=== PATIENT | male | born 1970 | race Caucasian/White ===

== ENCOUNTER 2020-04-08 05:46 | Day surgery (SDC) | payer OTHER ==
[2020-04-04 10:49] LABS: BASOPHILS # (AUTO) 0.1 X10'3 (0-0.2); BASOPHILS % (AUTO) 0.7 % (0-1); EOSINOPHILS # (AUTO) 0.1 X10'3 (0-0.9); EOSINOPHILS % (AUTO) 0.8 % (0-6); LYMPHOCYTES # (AUTO) 1.4 X10'3 (1.1-4.8); LYMPHOCYTES % (AUTO) 16.5 % (21-51); MEAN CORPUSCULAR HGB CONC 33.7 g/dL (33.0-36.5); MEAN PLATELET VOLUME 7.8 FL (7.4-10.4); MONOCYTES # (AUTO) 0.8 X10'3 (0-0.9); MONOCYTES % (AUTO) 9.7 % (2-12); NEUTROPHILS # (AUTO) 6.1 X10'3 (1.8-7.7); NEUTROPHILS % (AUTO) 72.3 % (42-75); PRE OP HEMATOCRIT 48.6 % (42.0-52.0); PRE OP HEMOGLOBIN 16.4 g/dL (14.0-17.9); PRE OP PLATELET COUNT 196 X10'3 (140-440); RED BLOOD COUNT 4.97 X10'6 (4.70-6.10); RED CELL DISTRIBUTION WIDTH 13.9 % (11.5-14.5)
[2020-04-04 11:05] LABS: PRE OP PROTIME 10.4 SECONDS (9.0-12.0)
[2020-04-04 11:07] LABS: ALBUMIN 4.2 G/DL (3.4-5.0); ALKALINE PHOSPHATASE 41 IU/L (46-116); BLOOD UREA NITROGEN 12 MG/DL (7-18); BUN/CREATININE RATIO 11.9 (5.4-32.0); CALCIUM 9.6 MG/DL (8.5-10.1); CHLORIDE 103 MMOL/L (99-107); CREATININE 1.01 MG/DL (0.60-1.10); PRE OP ANION GAP 10 (8-16); PRE OP AST 106 U/L (10-37); PRE OP BILIRUB, TOTAL 0.7 MG/DL (0.0-1.0); PRE OP GLUCOSE 91 MG/DL (70-104); PRE OP POTASSIUM 3.9 MMOL/L (3.4-5.1); PRE OP SODIUM 141 MMOL/L (135-145); TOTAL CARBON DIOXIDE 28.4 MMOL/L (24-32); TOTAL PROTEIN 8.3 G/DL (6.4-8.2); eGFR 79 ML/MIN
[2020-04-04 11:08] LABS: PRE OP ALT 138 U/L (30-65)
[~2020-04-08] VITALS: Ht 182.9 cm; Wt 97.8 kg
[2020-04-08] VITALS (10 sets, daily range): BP systolic 125–151; BP diastolic 70–100
[~2020-04-08 05:46] MED LIST: OMEP10CA5 PO; TEST200V10 IM; VALA500T41 PO; famotidine 20mg tablet PO ONE; ringers solution, lacted 1,000 ML IV SCH
[2020-04-08] MEDS: oxymetazoline 15 ML nasal spray NS PRN ×3 (06:20→10:58)
[2020-04-08] MEDS ORDERED: mupirocin 2% ointment 22GM ONE (08:08)
[2020-04-08] MEDS ORDERED: cocaine 4% topical solution 4ml bottle ONE (08:08)
[2020-04-08] MEDS ORDERED: cefTAZidime 1gm inj ONE (08:08)
[2020-04-08] MEDS ORDERED: methylPREDNISolone acetate 80mg/ml inj**IM only ONE (08:08)
[2020-04-08] MEDS ORDERED: gelatin sponge, absorbable (Gelfoam 100) sponge TP ONE (08:09)
[2020-04-08] MEDS ORDERED: LIDOcaine 1% w/epiNEPHrine 1:200,000 30ml vial ONE (08:09)
[2020-04-08] MEDS ORDERED: LIDOcaine 1% W/epiNEPHrine 1:200,000 10ml vial ONE (08:29)
[2020-04-08] MEDS ORDERED: fentaNYL/PF 50MCG/1 ML 2ML syringe ONE ×2 (09:15→09:32)
[2020-04-08] MEDS ORDERED: midazolam 2 mg/2 ml injection ONE (09:15)
[2020-04-08] MEDS ORDERED: LIDOcaine 2% (20mg/ml) 5ml vial ONE (09:16)
[2020-04-08] MEDS ORDERED: propofol inj 20 ML IV ONE (09:16)
[2020-04-08] MEDS ORDERED: dexamethasone sod phosphate 4mg/ml inj. ONE (09:17)
[2020-04-08] MEDS ORDERED: morphine 4 MG/ML inj SYRINge IV PRN (10:15)
[2020-04-08] MEDS ORDERED: ondansetron/PF 4mg/2ml inj IV PRN (10:15)
[2020-04-08] MEDS ORDERED: morphine 2 MG/ML inj. syringe IV PRN (10:15)
[2020-04-08] MEDS ORDERED: hydrALAZINE 20mg/ml inj. IV PRN (10:15)
[2020-04-08] MEDS ORDERED: ringers solution, lacted 1,000 ML IV SCH (10:15)
[2020-04-08] MEDS ORDERED: meperidine/PF 25mg/ml syringe IV PRN ×3 (10:15)
[2020-04-08] MEDS ORDERED: labetalol 5mg/ml 20ml inj. IV PRN (10:15)
--- NOTE | 2020-04-08 10:43 | NUR ---
Received from OR via [facility], accompanied by Anesthesiologist DR KENT and report given by Anesthesiolgist. PT SLEEPING BUT AROUSABLE. COTTONOIDS IN PLACE BILAT NARES.
[2020-04-08] MEDS ORDERED: neostigmine methylsulfate 1 MG/ML 10ml vial ONE (10:45)
[2020-04-08] MEDS ORDERED: ondansetron/PF 4mg/2ml inj ONE (10:45)
[2020-04-08] MEDS ORDERED: glycopyrrolate 0.2mg/ml inj ONE (10:45)
--- NOTE | 2020-04-08 11:13 | NUR ---
COTTONOIDS DC'D PER MD ORDERS, NO BLEEDING. MASSIMO NASAL DRSG APPLIED. PT TOLERATED WELL.
--- NOTE | 2020-04-08 11:35 | NUR ---
SALINE NASAL SPRAY AND NASAL OINTMENT ADMINISTERED PER MD ORDERS.
[2020-04-08] MEDS ORDERED: salt irrigation nasal spray 45 ML SPRAY NS PRN (12:18)
--- NOTE | 2020-04-08 12:43 | NUR ---
PT WAS DISCHARGED TO HOME SAFELY VIA W/C TO PERSONAL VEHICLE BEING DRIVEN BY PT . PT STATES UNDERSTANDING REGARDING ALL DC INSTRUCTIONS. NASAL DRSG IN PLACE, SCANT DRAINAGE FROM NARES. AFIRIN USED ORDERED AND NEW GAUZE PLACED. PT STATES HIS NAUSEA HAS RESOLVED AND STATES READINESS FOR DC TO HOME.
== END 2020-04-08 12:43 | disposition home or self-care (01) ==
LOC: PAS 05:46
PROVIDERS: ATTEND Otolaryngology
DX: J34.2 Deviated nasal septum (principal); J34.3 Hypertrophy of nasal turbinates; J32.8 Other chronic sinusitis; G47.33 Obstructive sleep apnea (adult) (pediatric); K21.9 Gastro-esophageal reflux disease without esophagitis; Z79.01 Long term (current) use of anticoagulants; Z79.899 Other long term (current) drug therapy; Z20.822 Contact with and (suspected) exposure to COVID-19; Z98.890 Other specified postprocedural states; Z72.89 Other problems related to lifestyle
CPT/HCPCS: 30140; 30520; 36415; 80053; 82948; 85025; 85576; 85610; 85730; 87426; 87635; 93005; A6402; C9250; J0713; J1040; J1100; J2001; J2175; J2250; J2405; J2704; J2710; J3010; J7120; A4618; A7000; J3490

== ENCOUNTER 2020-12-18 11:03 | Emergency (ER) | payer BC, OTHER ==
[~2020-12-18] VITALS: Ht 177.8 cm; Wt 93.6 kg
[~2020-12-18 11:03] MED LIST changes: -TEST200V10 IM; +TEST200V33 IM; -famotidine 20mg tablet PO ONE; -ringers solution, lacted 1,000 ML IV SCH
[2020-12-18] MEDS ORDERED: normal saline 1000ML IV soln IVB ONE ×2 (12:30→14:05)
[2020-12-18 12:57] LABS: BASOPHILS % (AUTO) 0.6 % (0-1); EOSINOPHILS # (AUTO) 0.1 X10'3 (0-0.9); EOSINOPHILS % (AUTO) 1.3 % (0-6); HEMATOCRIT 47.9 % (42.0-52.0); HEMOGLOBIN 16.5 g/dl (14.0-17.9); MEAN CORPUSCULAR HEMOGLOBIN 32.5 PG (27.0-31.0); MEAN CORPUSCULAR HGB CONC 34.4 g/dL (33.0-36.5); MEAN CORPUSCULAR VOLUME 94.6 FL (78-98); MEAN PLATELET VOLUME 8.3 FL (7.4-10.4); MONOCYTES # (AUTO) 0.9 X10'3 (0-0.9); NEUTROPHILS # (AUTO) 2.5 X10'3 (1.8-7.7); NEUTROPHILS % (AUTO) 56.1 % (42-75); PLATELET COUNT 138 X10'3 (140-440); RED BLOOD COUNT 5.07 X10'6 (4.70-6.10); RED CELL DISTRIBUTION WIDTH 13.3 % (11.5-14.5); WHITE BLOOD COUNT 4.5 X10'3 (4.5-11.0)
[2020-12-18 13:04] LABS: ALANINE AMINOTRANSFERASE 344 U/L (12-78); ALBUMIN 3.7 G/DL (3.4-5.0); ALBUMIN/GLOBULIN RATIO 0.9 (1.1-1.5); ALKALINE PHOSPHATASE 48 IU/L (46-116); ANION GAP 11 (8-16); ASPARTATE AMINO TRANSFERASE 184 U/L (10-37); BILIRUBIN,TOTAL 0.7 MG/DL (0.1-1.0); BLOOD UREA NITROGEN 14 MG/DL (7-18); BUN/CREATININE RATIO 12.8 (5.4-32.0); CALCIUM 8.4 MG/DL (8.5-10.1); CHLORIDE 98 MMOL/L (99-107); CREATININE 1.09 MG/DL (0.60-1.10); GLUCOSE 101 MG/DL (70-104); LIPASE 244 U/L (73-393); MAGNESIUM 2.2 MG/DL (1.5-2.4); POTASSIUM 4.1 MMOL/L (3.5-5.1); SODIUM 134 MMOL/L (135-145); TOTAL CARBON DIOXIDE 25.3 MMOL/L (24-32); TOTAL PROTEIN 7.7 G/DL (6.4-8.2); eGFR 72 ML/MIN
[2020-12-18 15:23] LABS: CLARITY,URINE CLEAR (Clear); COLOR,URINE YELLOW (Yellow); UA COLLECTION TYPE URINAL
[2020-12-18 15:24] LABS: GLUCOSE, URINE NEGATIVE (Neg); KETONES,URINE NEGATIVE (Neg); LEUKOCYTE ESTERASE ,URINE NEGATIVE (Neg); NITRITES, URINE NEGATIVE (Neg); OCCULT BLOOD,URINE NEGATIVE (Neg); PROTEIN,URINE NEGATIVE (Neg); UROBILINOGEN,URINE 0.2 E.U/dL (0.2-1.0)
[2020-12-18 15:56] LABS: D-DIMER 0.91 MG/L FEU (0-0.50)
--- NOTE | 2020-12-18 18:05 | NUR ---
Pt's skin is a light purple color. He has been taking a suppliment that has silver in the ingrediants.
[2020-12-18 18:54] VITALS: BP 136/98
== END 2020-12-18 19:16 | disposition home or self-care (01) ==
LOC: ER 11:04
DX: T37.4X1A Poisoning by anthelminthics, accidental (unintentional), initial encounter (principal); U07.1 COVID-19; R42 Dizziness and giddiness; Z90.89 Acquired absence of other organs; Z72.89 Other problems related to lifestyle; Z88.6 Allergy status to analgesic agent; Z79.899 Other long term (current) drug therapy; Y92.89 Other specified places as the place of occurrence of the external cause
CPT/HCPCS: 36415; 71045; 80053; 81003; 83605; 83690; 83735; 84145; 85025; 85379; 87040; 93005; 99285; J7030